=== PATIENT | female | born 1955 | race Caucasian/White ===

== ENCOUNTER → 2016-07-07 | Outpatient (CLI) | payer OTHER ==
--- NOTE | 2016-07-07 11:57 | MA ---
Screening Digital Mammogram Clinical Indications: Routine screening. Technique: Standard cephalocaudal and mediolateral oblique projections are obtained. This examinati on is processed by the [employer] computer aided detection system. Comparison: April 2014, March 2012, February 2010 and December 2007 Breast density: B; There are scattered fibroglandular densities. Findings: CAD was reviewed. No suspicious findings are identified. Impression: Negative mammogram. . BI-RADS 1. Recommendation: Routine screening is recommended in one year. [facility] will send a result letter to the patient. Negative mammography should not preclude additional workup of a clinically suspicious finding. The patient's information is entered into a reminder system with a target due date for her next mammo gram.
== END ==
LOC: CIMAGING 10:52
DX: Z12.31 Encounter for screening mammogram for malignant neoplasm of breast (principal)
CPT/HCPCS: G0202

== ENCOUNTER → 2016-10-19 | Outpatient (CLI) | payer OTHER ==
[~2016-10-19] MED LIST: IOPAMIDOL (ISOVUE-300) 100 ML BTL ONE
== END ==
LOC: FIMAGING 13:30
PROVIDERS: ATTEND Internal Medicine
DX: R93.421 Abnormal radiologic findings on diagnostic imaging of right kidney (principal); R93.422 Abnormal radiologic findings on diagnostic imaging of left kidney
CPT/HCPCS: Q9967

== ENCOUNTER → 2016-10-20 | Outpatient (CLI) | payer OTHER ==
[~2016-10-20] MED LIST changes: +GADOBUTROL 10 ML VIAL IVP ONE; -IOPAMIDOL (ISOVUE-300) 100 ML BTL ONE; +NA BICARBONATE 50 MEQ/50 ML VIAL ONE
== END ==
LOC: FIMAGING 17:44
PROVIDERS: ATTEND Internal Medicine
DX: N28.89 Other specified disorders of kidney and ureter (principal)
CPT/HCPCS: A9585

== ENCOUNTER 2016-11-04 12:30 | Inpatient (IN) | payer OTHER ==
[2016-11-11] MEDS ORDERED: BUPIVACAINE/EPI 0.25% 30 ML SDV ONE (12:33)
[2016-11-11] MEDS ORDERED: LR 1,000 ML IV ONE (12:43)
[2016-11-11] MEDS ORDERED: LIDOCAINE 1% 2 ML INJ ID PRN (12:43)
[2016-11-11] MEDS ORDERED: ceFAZolin 2 GM/DEXTROSE 100 ML IV ONE (13:06)
--- NOTE | 2016-11-11 13:06 | PDHPUP ---
History & Physical Update H&P update statement: This history and physical update is based on an assessment of the patient which was completed after admission or registration (within 24 hours), but prior to the surgery/procedure. H&P update: H&P reviewed & patient examined, no change in patient's condition since H&P completed
[2016-11-11] MEDS ORDERED: ROCURONIUM 100 MG/10 ML VIAL ONE (13:23)
[2016-11-11] MEDS ORDERED: LIDOCAINE 2% 100 MG/5 ML SYR ONE (13:23)
[2016-11-11] MEDS ORDERED: PROPOFOL 200 MG/20 ML VIAL ONE (13:23)
[2016-11-11] MEDS ORDERED: METOCLOPRAMIDE 10 MG/2 ML VIAL ONE (13:23)
[2016-11-11] MEDS ORDERED: DEXAMETHASONE 4 MG/ML VIAL ONE ×2 (13:23)
[2016-11-11] MEDS ORDERED: MIDAZOLAM 2 MG/2 ML VIAL ONE (13:24)
[2016-11-11] MEDS ORDERED: LR 1,000 ML IV SCH (13:30)
--- NOTE | 2016-11-11 14:19 | PDANEPAE ---
ANE Past Medical History - Cardiovascular History Hx Hypertension: Yes Hx Arrhythmias: No Hx Chest Pain: No Hx Coronary Artery / Peripheral Vascular Disease: No Hx CHF / Valvular Disease: No Hx Palpitations: No - Pulmonary History Hx COPD: No Hx Asthma/Reactive Airway Disease: No Hx Recent Upper Respiratory Infection: No Hx Oxygen in Use at Home: No - Neurologic History Hx Cerebrovascular Accident: No Hx Seizures: No Hx Dementia: No - Endocrine History Hx Diabetes: No - Renal History Hx Renal Disorders: Yes - Liver History Hx Hepatic Disorders: No - Neurological & Psychiatric Hx Hx Neurological and Psychiatric Disorders: No - Cancer History Hx Cancer: No - Congenital Disorder History Hx Congenital Disorders: No - GI History Hx Gastrointestinal Disorders: No - Chronic Pain History Chronic Pain: Yes (ARTHRITIS TO KNEES) ANE Review of Systems - Exercise capacity METS (RN): 4 METS - Systems Constitutional: Reports: other (morbid obesity) ANE Patient History - Allergies Allergies/Adverse Reactions: amlodipine [From Norvasc] Allergy (Verified 11/04/16 11:17) Swelling/neck,face,throat atorvastatin Allergy (Verified 11/04/16 11:18) Hives azithromycin Allergy (Verified 11/04/16 11:17) Hives carbamazepine Allergy (Verified 11/04/16 11:17) Hives enalapril Allergy (Verified 11/04/16 11:17) rash/swelling enalaprilat Allergy (Verified 11/04/16 11:17) rash/swelling olmesartan Allergy (Verified 11/04/16 11:17) Swelling/neck,face,throat simvastatin [From Zocor] Allergy (Verified 11/04/16 11:17) "makes her pass out" Sulfa (Sulfonamide Antibiotics) Allergy (Verified 11/04/16 11:18) Hives vasopressin Allergy (Verified 11/04/16 11:17) Anaphylaxis Shock - Home Medications Home Medications: Losartan Potassium [Cozaar] 100 mg PO DAILY 10/27/16 [Last Taken 11/11/16 07:00] Magnesium Glycinate [MAG GLYCINATE] 400 mg PO DAILY 10/27/16 [Last Taken ] Multivitamins [Multivitamin (*)] 1 each PO DAILY 10/27/16 [Last Taken 11/04/16] Nebivolol HCl [Bystolic] 10 mg PO DAILY 10/27/16 [Last Taken 11/11/16 07:00] - NPO status NPO Since - Liquids (Date): 11/11/16 NPO Since - Liquids (Time): 07:30 NPO Since - Solids (Date): 11/11/16 NPO Since - Solids (Time): 20:30 - Anes Hx Anes Hx: no prior problems - Smoking Hx Smoking Status: Never smoked - Family Anes Hx Family Hx Anesthesia Complications: NONE ANE Labs/Vital Signs - Vital Signs Blood Pressure: 160/80 Heart Rate: 61 Respiratory Rate: 14 O2 Sat (%): 95 Height: 167.64 cm Weight: 86.183 kg ANE Physical Exam - Airway Mallampati Score: Class 2 Mouth exam: normal dental/mouth exam - Pulmonary Pulmonary: no respiratory distress - Cardiovascular Cardiovascular: regular rate and rhythym - ASA Status ASA Status: III
[2016-11-11] MEDS ORDERED: SUGAMMADEX SODIUM 200 MG/2 ML VIAL IVP ONE (16:51)
[2016-11-11] MEDS ORDERED: morphINE *ANESTHESIA ONLY* 10 MG/ML VIAL ONE (16:57)
[2016-11-11] MEDS ORDERED: NALOXONE HCL 0.4 MG/ML INJ IVP PRN (17:20)
[2016-11-11] MEDS ORDERED: MEPERIDINE 25 MG/ML SYR IVP PRN (17:20)
[2016-11-11] MEDS ORDERED: LR 500 ML IV PRN (17:20)
[2016-11-11] MEDS ORDERED: ONDANSETRON 4 MG/2 ML VIAL IVP PRN (17:20)
[2016-11-11] MEDS ORDERED: ALBUTEROL 3 ML DEYVIAL IH PRN (17:20)
--- NOTE | 2016-11-11 17:21 | POSTANESTH ---
Post Anesthetic Evaluation Respiratory Status: Normal, Stable Level of Consciousness/Mental Status: Can Participate in Eval Pain Control: Adequate, Prn Tx Ordered Nausea/Vomiting Control: Adequate, Prn Tx Ordered Complications Possibly Related to Anesthesia: None Noted
[2016-11-11] MEDS ORDERED: fentaNYL 100 MCG/2 ML INJ ONE (17:22)
[2016-11-11] MEDS: fentaNYL 100 MCG/2 ML INJ IVP PRN ×2 (17:24→17:29)
[2016-11-11] MEDS ORDERED: ACETAMINOPHEN 325 MG TAB PO PRN (17:25)
[2016-11-11] MEDS ORDERED: IBUPROFEN 200 MG TAB PO PRN (17:25)
[2016-11-11] MEDS ORDERED: ONDANSETRON DISINTEGRATING 4 MG TAB PO PRN (17:25)
[2016-11-11] MEDS ORDERED: ZOLPIDEM TARTRATE 5 MG TAB PO PRN (17:25)
[2016-11-11] MEDS ORDERED: ONDANSETRON 4 MG/2 ML VIAL ONE (17:30)
[2016-11-11] MEDS ORDERED: HYDROmorphONE/DILAUDID 1 MG/ML SYR ONE ×2 (17:33→17:58)
[2016-11-11] MEDS: HYDROmorphONE/DILAUDID 1 MG/ML SYR IVP PRN ×4 (17:35→18:35)
--- NOTE | 2016-11-11 17:42 | POSTOPPROG ---
Post Op Note Date of Operation: 11/11/16 Surgeon: Alverto Hartley Anesthesia: GET(General Endotracheal) Pre-op Diagnosis: Right renal mass Post-op Diagnosis: Right renal mass Procedure: Laparoscopic right radical nephrectomy Findings: 5 cm upper pole right renal mass Inf/Abcess present in the surg proc area at time of surgery?: No EBL: 50-100 Total fluids administered: 2200 LR Complications: none
--- NOTE | 2016-11-11 18:37 | GOP ---
[f rep st] OPERATIVE REPORT DATE OF OPERATION: 11/11/2016 SURGEON: Alverto Hartley MD ANESTHESIOLOGIST: Lucio Javier MD PREOPERATIVE DIAGNOSIS: Right renal mass. POSTOPERATIVE DIAGNOSIS: Right renal mass. PROCEDURE PERFORMED: Laparoscopic right radical nephrectomy. FINDINGS: SPECIMENS: Right radical nephrectomy. ESTIMATED BLOOD LOSS: 50 mL. INDICATIONS: Patient is a 60-year-old female who was found to have a 5 cm right upper pole renal ma ss, worrisome for malignancy. After discussing options, she elected to come in for a radical nephre ctomy. DESCRIPTION OF PROCEDURE: After informed consent, with general endotracheal anesthesia, Ramires jody ter was placed. Patient was positioned on a velázquez bag in the left lateral decubitus position. A manas ulder roll was positioned. All pressure points were carefully padded. She was secured to the table with tape. Abdomen and flank were sterilely prepped and draped. A 3-port laparoscopic approach wa s employed. 5 mm Optiview was placed 10 cm caudal to the xiphoid process along the costal margin. The abdomen was then insufflated to 15 mmHg. An additional 5 and 12 mm port were placed cranial and caudad to the original port, parallel to the costal margin. Examination did not reveal any gross abnormalities. Harmonic Scalpel was used to incise the white l ine of [place] and reflected the colon and duodenum medially. The ureter was identified and was used to elevate the kidney. The hilum comprising 2 arteries and 2 veins were then identified. The lower pole vessels were divided en bloc using Endo-EDWAR. Further dissection of the main artery and vein w ere then carried out. These vessels were then ligated en bloc with an Endo-EDWAR stapler. The medial superior aspect of the kidney was then dissected, taking care to preserve the adrenal gland. The k idney was then completely mobilized within Gerota's fascia from the body wall. The ureter was then divided with Harmonic Scalpel. The specimen was removed with a retrieval bag through an extension o f the lower port. It was submitted intact for pathologic examination. The extraction incision was closed in layers using 3-0 Vicryl for the peritoneum and 0 PDS for the f ascia. The abdomen was then reinsufflated and examined for hemostasis. Confirming this, the abdome n was desufflated and the remaining ports removed. The extraction incision was completed using subc utaneous Vicryl and subcuticular Monocryl. The 2 remaining port sites were closed using subcuticula r Monocryl. Dermabond was applied to the skin, the patient was awakened and transferred to the [facility] very room in stable condition. There were no intraoperative complications. /[id number]/MODL
[2016-11-11] MEDS: HYDROmorphONE/DILAUDID 6 MG/30 ML PCA IV PRN (19:22)
[2016-11-11] MEDS: D5W 1/2 NS 1,000 ML IV SCH (19:25)
[2016-11-11] MEDS: ONDANSETRON 4 MG/2 ML VIAL IVP PRN (22:37)
[2016-11-12] MEDS: D5W 1/2 NS 1,000 ML IV SCH ×3 (03:18→23:27)
[2016-11-12] MEDS: HYDROmorphONE/DILAUDID 6 MG/30 ML PCA IV PRN (04:52)
[2016-11-12 05:11] LABS: % IMMATURE GRANULYOCYTES 0.3 % (0.0-1.1); ABSOLUTE IMMATURE GRANULOCYTES 0.03 10^3/uL (0.00-0.10); ADD DIFF? NO; ADD MORPH? NO; ADD SCAN? NO; ATYPICAL LYMPHOCYTE FLAG 0 (0-99); FRAGMENT RBC FLAG 0 (0-99); HEMOGLOBIN 12.9 g/dL (12.6-16.3); LEFT SHIFT FLG 20 (0-99); LIPEMIA HEMOLYSIS FLAG 80 (0-99); MEAN CELL HEMOGLOBIN 30.7 pg (27.9-34.1); MEAN CELL HEMOGLOBIN CONCENTR. 32.3 g/dL (32.4-36.7); MEAN CELL VOLUME 95.2 fL (81.5-99.8); MEAN PLATELET VOLUME 10.4 fL (8.7-11.7); PLATELET CLUMPS FLAG 0 (0-99); PLATELET COUNT 246 10^3/uL (150-400); RED CELL DISTRIBUTION WIDTH 12.6 % (11.5-15.2)
[2016-11-12 05:25] LABS: ANION GAP 10 mEq/L (8-16); CALCIUM 9.5 mg/dL (8.5-10.4); CARBON DIOXIDE 21 mEq/l (22-31); CHLORIDE 106 mEq/L (97-110); CREATININE 1.3 mg/dL (0.6-1.0); GLOMERULAR FILTRATION RATE 42; GLUCOSE 127 mg/dL (70-100); POTASSIUM 4.8 mEq/L (3.5-5.2); SODIUM 137 mEq/L (134-144)
[2016-11-12] MEDS: ONDANSETRON 4 MG/2 ML VIAL IVP PRN (07:45)
[2016-11-12] MEDS: oxyCODONE IR 5 MG TAB PO PRN ×3 (08:44→20:51)
[2016-11-12] MEDS: LOSARTAN POTASSIUM 50 MG TAB PO SCH (08:45)
[2016-11-12] MEDS: NEBIVOLOL HCL 5 MG TAB PO SCH (08:45)
[2016-11-12] MEDS ORDERED: PROMETHAZINE HCL 25 MG/ML INJ IVP PRN (08:55)
[2016-11-12] MEDS ORDERED: NON-FORMULARY NEW DRUG (Nebivolol Hcl [Bystolic] 10 MG) PO SCH (09:00)
[2016-11-12] MEDS ORDERED: NON-FORMULARY NEW DRUG (Losartan Potassium [Cozaar] 100 MG) PO SCH (09:00)
--- NOTE | 2016-11-12 09:02 | SOAPPROG ---
SOAP Progress Note Assessment/Plan: Assessment: Right renal mass s/p lap right nephrectomy Plan: 11/12/16 08:58 Will try to transition to po pain meds; will use Phenergan, morphine, Toradol. Subjective: Pt feels fairly good except for nausea that she attributes to Dilaudid. Objective: Vital Signs Temp Pulse Resp BP Pulse Ox 36.4 C 66 14 123/77 H 96 11/12/16 08:27 11/12/16 08:45 11/12/16 08:27 11/12/16 08:45 11/12/16 08:27 Laboratory Results 11/12/16 04:33 11/12/16 04:33 11/11/16 11/12/16 11/13/16 05:59 05:59 05:59 Intake Total 2650 Output Total 650 Balance 2000 Physical Exam - Physical Exam General Appearance: WD/WN, alert, no apparent distress Respiratory: chest non-tender, lungs clear Abdomen: normal bowel sounds, non-tender, soft, other (incisions dry/intact) Skin: normal color Extremities: normal range of motion ICD10 Worksheet Patient Problems: Problems Problem Status Onset Renal mass, right Acute - ICD10 Problem Qualifiers (1) Renal mass, right
[2016-11-12] MEDS: KETOROLAC 15 MG/1 ML SDV IVP SCH ×3 (11:10→23:27)
[2016-11-13] MEDS: oxyCODONE IR 5 MG TAB PO PRN ×3 (03:09→12:25)
[2016-11-13 03:13] VITALS: O2SAT 91
[2016-11-13] MEDS: KETOROLAC 15 MG/1 ML SDV IVP SCH ×2 (05:10→12:23)
[2016-11-13 07:58] VITALS: PULSE 72; RESP 14; TEMP 98
[2016-11-13] MEDS: LOSARTAN POTASSIUM 50 MG TAB PO SCH (08:28)
[2016-11-13] MEDS: NEBIVOLOL HCL 5 MG TAB PO SCH (08:29)
[2016-11-13 08:30] VITALS: BP 153/85
--- NOTE | 2016-11-13 10:56 | SOAPPROG ---
SOAP Progress Note Assessment/Plan: Assessment: Right renal mass s/p lap right nephrectomy Plan: 11/12/16 08:58 Will try to transition to po pain meds; will use Phenergan, morphine, Toradol. 11/13/16 10:55 Pt feels well; no nausea, ambulating well, tolerating oral pain medication. Will discharge home Subjective: Pt feels well; pain controlled with oxycodone. Objective: Vital Signs Temp Pulse Resp BP Pulse Ox 36.7 C 72 14 153/85 H 91 L 11/13/16 07:55 11/13/16 08:29 11/13/16 07:55 11/13/16 08:29 11/13/16 07:55 Laboratory Results 11/12/16 04:33 11/12/16 04:33 11/12/16 11/13/16 11/14/16 05:59 05:59 05:59 Intake Total 2650 2466 Output Total 650 1700 Balance 2000 766 Physical Exam - Physical Exam General Appearance: WD/WN, alert, no apparent distress Abdomen: normal bowel sounds, non-tender, soft (incision clean and dry.) ICD10 Worksheet Patient Problems: Problems Problem Status Onset Renal mass, right Acute - ICD10 Problem Qualifiers (1) Renal mass, right
[2016-11-14] MEDS ORDERED: MULTIVITAMINS 1 EACH TAB PO SCH (09:00)
[2016-11-14] MEDS ORDERED: MAGNESIUM GLYCINATE 400 MG PO SCH (09:00)
== END 2016-11-13 12:58 | disposition home or self-care (01) | DRG 658 ==
LOC: F3N 11-11 12:08 → F3E 11-11 18:41
PROVIDERS: ADMIT Urology; ATTEND Urology
PROC: 0TT04ZZ Resection of Right Kidney, Percutaneous Endoscopic Approach (ICD-10-PCS; principal; 2016-11-11 13:30)
DX: C64.1 Malignant neoplasm of right kidney, except renal pelvis (principal); I10 Essential (primary) hypertension; E78.5 Hyperlipidemia, unspecified; E55.9 Vitamin D deficiency, unspecified; M19.90 Unspecified osteoarthritis, unspecified site; E66.01 Morbid (severe) obesity due to excess calories; Z68.30 Body mass index [BMI] 30.0-30.9, adult
CPT/HCPCS: J0690; J1100; J1170; J1200; J1885; J2001; J2250; J2405; J2550; J2704; J2765; J3010

== ENCOUNTER 2017-04-05 08:04 | Inpatient (IN) | payer OTHER ==
--- NOTE | 2017-03-20 15:35 | GHP ---
[f rep st] PREOP HISTORY AND PHYSICAL DATE OF ADMISSION: 04/05/2017 PROBLEM: Right knee arthritis. HISTORY OF PRESENT ILLNESS: The patient is a 61-year-old woman admitted for right total knee arthroplasty. I did arthroscopic surgery on her right knee in 2013. In the past year, she started experiencing increasing soreness on the medial side of the knee. In October 2016, she underwent a right-sided nephrectomy for a renal cancer. She can no longer take Aleve or ibuprofen. In the past 3 or 4 months, she has had increasing pain in her right knee. The knee is painful going down stairs. She has been limping. She has a difficult time lifting and carrying her 2-year-old granddaughter. Because of the progressive pain and limitation of activities and function, she will undergo a right total knee arthroplasty. PAST MEDICAL HISTORY: Nephrectomy for renal carcinoma. She has had a previous parathyroidectomy. She is treated for hypertension. No history of heart disease, stents, DVT, hepatitis, sleep apnea, or bleeding problems. CURRENT MEDICATIONS: Bystolic 10 mg per day, losartan 50 mg per day. DRUG ALLERGIES: Sulfa and azithromycin. Metal allergy: None. Latex allergy: None. SOCIAL HISTORY: The patient is . She is working. She does not smoke cigarettes. She rarely drinks alcohol. FAMILY HISTORY: Positive for hypertension. PHYSICAL EXAMINATION: GENERAL: Height 5 feet 5 inches. Weight 190 pounds. BMI 31.6. EYES: Conjunctivae and sclerae are clear. Pupils are round and reactive. She is wearing contact lenses. MOUTH: Good oral hygiene. No loose teeth. CHEST: Clear. HEART: Regular rhythm. No murmurs. EXTREMITIES: Pertinent findings limited to her right knee. She has full extension and 110 degrees of flexion. She is tender along the medial joint line. She has mild pseudolaxity of her medial collateral ligament. A small effusion is present. IMAGING: Her films show advanced medial compartment degenerative arthritis. She is [id number]. She has mild varus alignment. Minor degenerative changes are present in the lateral compartment and patellofemoral joint. IMPRESSION ON ADMISSION: 1. Right knee degenerative arthritis. She is prepared for a right total knee arthroplasty. 2. Status post nephrectomy for renal carcinoma. 3. Status post parathyroidectomy. 4. Treatment for hypertension. PLAN: She will undergo a right total knee arthroplasty. The surgery has been described to her including the risks, complications, expectations, and recovery time. I have stressed the importance of postoperative physical therapy. I have advised her that a small percentage of patients do not get a satisfactory result with a total knee replacement. She understands that she is relatively young for a total joint arthroplasty. She might require revision surgery in her lifetime. All her questions have been answered, and she consents to surgery. /[id number]/MODL MTDD
[~2017-04-05 08:04] MED LIST changes: -GADOBUTROL 10 ML VIAL IVP ONE; -NA BICARBONATE 50 MEQ/50 ML VIAL ONE; +NS IV ONE; +POVIDONE-IODINE 20 ML in SODIUM CL IRRIG SOLUTION 500 ML IRR ONE; +ROPIVACAINE 0.2% 80 MG, EPINEPHrine 0.2 MG, KETOROLAC TROMETHAMINE 30 MG in BAG 0 ML IU ONE; +TRANEXAMIC ACID IV ONE; +ceFAZolin 1 GM/5 ML SYR ONE
[2017-04-05] MEDS ORDERED: DEXAMETHASONE 4 MG/ML VIAL IVP ONE (08:40)
[2017-04-05] MEDS ORDERED: ceFAZolin 2 GM/SWFI 2 GM/20 ML SYR IVP ONE (08:40)
[2017-04-05] MEDS ORDERED: ACETAMINOPHEN 325 MG TAB PO ONE (08:40)
[2017-04-05] MEDS ORDERED: FAMOTIDINE 20 MG TAB PO ONE (08:40)
[2017-04-05] MEDS ORDERED: LR 1,000 ML IV ONE (08:42)
[2017-04-05] MEDS ORDERED: FAMOTIDINE 20 MG TAB ONE (08:50)
[2017-04-05] MEDS ORDERED: DEXAMETHASONE 4 MG/ML VIAL ONE (08:50)
[2017-04-05] MEDS ORDERED: ACETAMINOPHEN 325 MG TAB ONE (08:50)
[2017-04-05] MEDS ORDERED: ceFAZolin 2 GM/SWFI 20 ML SYR IVP ONE (08:51)
--- NOTE | 2017-04-05 08:53 | PDANEPAE ---
ANE Past Medical History - Cardiovascular History Hx Hypertension: Yes Hx Arrhythmias: No Hx Chest Pain: No Hx Coronary Artery / Peripheral Vascular Disease: No Hx CHF / Valvular Disease: No Hx Palpitations: No Cardiovascular History Comment: PCP MONITORS BP MEDICATIONS - Pulmonary History Hx COPD: No Hx Asthma/Reactive Airway Disease: No Hx Recent Upper Respiratory Infection: No Hx Oxygen in Use at Home: No Hx Sleep Apnea: No Sleep Apnea Screening Result - Last Documented: Negative - Neurologic History Hx Cerebrovascular Accident: No Hx Seizures: No Hx Dementia: No - Endocrine History Hx Diabetes: No Endocrine History Comment: PARATHYROIDS REMOVED D/T BENIGN TUMORS - Renal History Hx Renal Disorders: Yes Renal History Comment: TUMOR IN RIGHT KIDNEY. R radical nephrectomy. - Liver History Hx Hepatic Disorders: No - Neurological & Psychiatric Hx Hx Neurological and Psychiatric Disorders: No - Cancer History Hx Cancer: Yes Cancer History Comment: R KIDNEY MALIGNANT TUMOR. - Congenital Disorder History Hx Congenital Disorders: No - GI History Hx Gastrointestinal Disorders: No - Other Health History Other Health History: WEARS GLASSES/ CONTACTS. ARTHRITIS - Chronic Pain History Chronic Pain: Yes (ARTHRITIS TO KNEES) - Surgical History Prior Surgeries: PARATHYROID REMOVAL X2 10/2011. TONSILLECTOMY. X2. HYSTERECTOMY. LENKA. MENISCUS REPAIR ANE Review of Systems Review of Systems: - Exercise capacity METS (RN): 4 METS ANE Patient History - Allergies Allergies/Adverse Reactions: amlodipine [From Norvasc] Allergy (Verified 11/04/16 11:17) Swelling/neck,face,throat atorvastatin Allergy (Verified 11/04/16 11:18) Hives azithromycin Allergy (Verified 11/04/16 11:17) Hives carbamazepine Allergy (Verified 11/04/16 11:17) Hives enalapril Allergy (Verified 11/04/16 11:17) rash/swelling enalaprilat Allergy (Verified 11/04/16 11:17) rash/swelling olmesartan Allergy (Verified 11/04/16 11:17) Swelling/neck,face,throat simvastatin [From Zocor] Allergy (Verified 11/04/16 11:17) "makes her pass out" Sulfa (Sulfonamide Antibiotics) Allergy (Verified 11/04/16 11:18) Hives vasopressin Allergy (Verified 11/04/16 11:17) Anaphylaxis Shock - Home Medications Home Medications: Losartan Potassium [Cozaar] 100 mg PO DAILY 10/27/16 [Last Taken 11/11/16 07:00] Magnesium Glycinate [MAG GLYCINATE] 400 mg PO DAILY 10/27/16 [Last Taken ] Multivitamins [Multivitamin (*)] 1 each PO DAILY 10/27/16 [Last Taken 11/04/16] Nebivolol HCl [Bystolic] 10 mg PO DAILY 10/27/16 [Last Taken 11/11/16 07:00] - Smoking Hx Smoking Status: Never smoked - Family Anes Hx Family Hx Anesthesia Complications: NONE ANE Labs/Vital Signs - Vital Signs Height: 167.64 cm Weight: 86.183 kg
[2017-04-05] MEDS ORDERED: MIDAZOLAM 2 MG/2 ML VIAL IVP ONE (09:36)
[2017-04-05] MEDS ORDERED: PROPOFOL/EMULSION 500 MG/50 ML BOTTLE IV ONE (09:42)
[2017-04-05] MEDS ORDERED: methylPREDNISolone SOD SUCC 125 MG/2 ML VIAL ONE (09:43)
[2017-04-05] MEDS ORDERED: MIDAZOLAM 2 MG/2 ML VIAL ONE (09:44)
[2017-04-05] MEDS ORDERED: VANCOMYCIN 1 GM VIAL ONE (10:07)
--- NOTE | 2017-04-05 11:49 | POSTOPPROG ---
Post Op Note Date of Operation: 04/05/17 Surgeon: Marcial Carter Liquor Bridge Operator Helper: Braeden Hendricks/Edmar Shine Anesthesiologist: Dr. uHy Feldman Anesthesia: IV Sedation, Spinal Post-op Diagnosis: Right knee severe degenerative arthritis. Procedure: Right total knee arthroplasty Inf/Abcess present in the surg proc area at time of surgery?: No EBL: 50-100 (Adductor canal block in PACU)
[2017-04-05] MEDS ORDERED: ONDANSETRON 4 MG/2 ML VIAL IVP PRN (11:56)
[2017-04-05] MEDS ORDERED: PROMETHAZINE HCL 25 MG SUPPR PR PRN (11:56)
[2017-04-05] MEDS ORDERED: POLYETHYLENE GLYCOL 3350 17 GM PKT PO PRN (11:56)
[2017-04-05] MEDS ORDERED: NS 500 ML IV PRN (11:56)
[2017-04-05] MEDS ORDERED: LACTULOSE 20 GM/30 ML UDCUP PO PRN (11:56)
[2017-04-05] MEDS ORDERED: TEMAZEPAM 15 MG CAP PO PRN (11:56)
[2017-04-05] MEDS ORDERED: MAGNESIUM HYDROXIDE 30 ML UDCUP PO PRN (11:56)
[2017-04-05] MEDS ORDERED: ONDANSETRON DISINTEGRATING 4 MG TAB PO PRN (11:56)
[2017-04-05] MEDS ORDERED: CYCLOBENZAPRINE 10 MG TAB PO PRN (11:56)
[2017-04-05] MEDS ORDERED: DIPHENOXYLATE/ATROPINE LOMOTIL 1 TAB PO PRN (11:56)
[2017-04-05] MEDS ORDERED: BISACODYL 10 MG SUPP PR PRN (11:56)
[2017-04-05] MEDS ORDERED: METOCLOPRAMIDE 10 MG/2 ML VIAL IVP PRN (11:56)
[2017-04-05] MEDS ORDERED: diphenhydrAMINE 25 MG CAP PO PRN (11:56)
[2017-04-05] MEDS ORDERED: PROMETHAZINE HCL 25 MG/ML INJ IVP PRN (11:56)
[2017-04-05] MEDS ORDERED: LR 1,000 ML IV SCH (12:00)
--- NOTE | 2017-04-05 12:48 | GOP ---
[f rep st] OPERATIVE REPORT DATE OF OPERATION: 04/05/2017 SURGEON: Marcial Carter MD BERRY PICKER: Braeden Hendricks CFA, and Edmar Shine PA-C. ANESTHESIA: A combination of Marcaine spinal, IV sedation, and adductor canal block. ANESTHESIOLOGIST: Dr. Huy Feldman. PREOPERATIVE DIAGNOSIS: Right knee degenerative arthritis. POSTOPERATIVE DIAGNOSIS: Right knee degenerative arthritis. PROCEDURE PERFORMED: A right total knee arthroplasty, cemented, Cedillo and Nephew Journey II, posteri or stabilized. FINDINGS: DESCRIPTION OF PROCEDURE: The patient was given 2 g of IV Ancef preoperatively within 60 minutes of surgery. She also received IV tranexamic acid at a dose of 10 mg/kg. She was placed on the operatin g room table and given spinal anesthesia with Marcaine by Dr. Feldman. She was placed supine and give n IV sedation. A Ramires catheter was not used. She wore a GREG stocking and SCD on the nonoperative l eg. Her right lower extremity was prepped with ChloraPrep from the upper thigh tourniquet to the tip s of the toes. It was draped free using sterile sheets, stockinette, and Ioban plastic adhesive drap es. The lower leg was wrapped with compressive Coban. The leg was exsanguinated with elevation and a 6-inch compressive wrap, and the tourniquet was inflated to 350 mmHg. The [employer] time-out was performed to verify the correct patient identity and the c orrect surgical site and side. The [place] time-out was also performed. The OnTheGo Platformsayo leg-holding device was sterilely attached to the operating room table and used throughout the procedure to help position the knee. A straight midline incision was made centered on the patell a. Subcutaneous tissues were sharply divided, and hemostasis was obtained using electrocautery. A medial subcutaneous flap was developed, and the capsule and synovium were opened in a medial parapa tellar fashion. Extensive degenerative changes were present in all 3 compartments. The lateral comp artment was the least involved. The medial capsule and periosteum were elevated off the rim of the m edial tibial plateau all the way around to the posteromedial corner. Her medial collateral ligament was lightly released. In order to improve exposure, her patella was prepared first. The original th ickness of the patella was measured. Peripheral osteophytes were removed. I cut a flat surface on t he back of the patella. It was sized for a 35 mm resurfacing component. I removed enough bone from the patella such that the remaining bone plus the thickness of the patellar component recreated the o riginal thickness of the patella. The composite thickness was 21 mm. The intramedullary alignment guide system was used to set up the distal femoral cut. The femur was c ut in 5 degrees of valgus. She had about 5 degrees of hyperextension preoperatively. I did not make a +2 mm cut on the distal femur. The sizing jig was used to determine proper femoral sizing. I aiyana fted the jig anteriorly 1 mm in order to accommodate a size 4 femoral component without notching the anterior cortex. The 5-in-1 cutting block was applied, and the anterior and posterior condylar cuts and chamfer cuts were made. The final jig was used to remove the central portion of the distal femur to accommodate the posterior-stabilized femoral component. I was careful to determine proper rotati on by referencing off [place] line and other bony anatomy. Each cut was checked for accuracy befor e and after it was made. The femur was sized for a size 4 posterior-stabilized component. The trial component was tapped securely into place and was a good fit. Next, the tibia was prepared. The proximal tibial cut was made using the extramedullary alignment gu rosalba system. The cut was made in a few degrees of posterior slope. I was careful to achieve proper v arus/valgus alignment and proper rotation. The posterior compartment was cleared of meniscal remnant s. Osteophytes were removed from the back of her femoral condyles. I checked the flexion and extens ion gaps, and they were equal, balanced, and rectangular. The tibia was sized for a size 3 component. With the trial components in place, I selected an 11 mm polyethylene posterior-stabilized tibial insert. The knee came to about 3-5 degrees of hyperextensio n and flexed to 125 degrees. There was no overstuffing in flexion. Her collateral ligaments were st able and balanced in full extension and 80 degrees of flexion. Her trial patellar button was applied , and tracking was checked. Tracking was excellent without any digital pressure. 40 mL of the joint anesthetic cocktail were injected into the posterior capsule, the periarticular st ructures, the quadriceps muscle and tendon areas, and the subcutaneous tissues along the skin edges. A second dose of tranexamic acid was given at a dose of 10 mg/kg. The surfaces were prepared for cementing. They were carefully cleaned with the pulsating lavage irri gation and thoroughly dried. The CarboJet device was used to blow dry the cancellous surfaces. A do uble batch of methylmethacrylate high-viscosity cement was mixed, along with 2 g of powdered vancomyc in. While it was still in a semi liquid state, all 3 components were cemented in place. Excess ceme nt was removed before it hardened. The 11 mm trial tibial insert was re-tried and was the proper thickness. The actual component was in serted and locked into place. The knee was thoroughly irrigated one final time with a dilute Betadin e solution. The tourniquet was deflated. Total tourniquet time was 52 minutes. Even though she did have 3-5 degrees of hyperextension, her medial and lateral collateral ligaments were stable in 0 deg sammy of flexion. The vastus medialis portion of the extensor mechanism was repaired with several interrupted figure-of -eight #2 FiberWire sutures. The capsule and synovium were closed first with multiple interrupted fi [id number] 0 PDS sutures, followed by a running #2 barbed Ethicon Stratafix PDO suture. The subcu taneous tissues were closed with a running 0 barbed Ethicon Stratafix Monoderm suture. The skin was closed with a running 3-0 barbed Ethicon Stratafix Monoderm subcuticular suture. The skin was sealed with half-inch Steri-Strips. The wound was covered with Xeroform gauze and flat 4 x 4s. The knee w as wrapped with Kerlix and a 6-inch compressive wrap. A long-leg GREG stocking and SCD were applied f ollowed by the cooling device. The patient wore a stocking and SCD on the opposite leg during the pr ocedure. I used a size 4 cemented Cedillo and Nephew Oxinium posterior-stabilized femoral component, size 3 ceme nted tibial base plate, an 11 mm posterior-stabilized tibial insert, and a 35 mm cemented round all-p olyethylene resurfacing patellar component. The estimated blood loss following deflation of the tourniquet was about 100 mL. The sponge and need le counts were correct on 2 occasions. She was awakened from anesthesia, transferred to her gurney, and taken to PACU in satisfactory condit ion. There were no recognized intraoperative complications. In the PACU, for additional postoperative pain control, Dr. Feldman performed an adductor canal block. Braeden Hendricks CFA, and Edmar Shine PA-C, acted as surgical assistants. Their assistance was a m eden[place] necessity. /[id number]/MODL
[2017-04-05] MEDS: ACETAMINOPHEN 325 MG TAB PO SCH ×2 (13:52→18:26)
[2017-04-05] MEDS: HYDROCODONE/APAP 5/325 TAB PO PRN ×3 (14:52→21:42)
[2017-04-05] MEDS: traMADol 50 MG TAB PO PRN (17:06)
[2017-04-05] MEDS: ceFAZolin 2 GM/DEXTROSE 100 ML IV SCH (18:24)
[2017-04-05] MEDS ORDERED: MAGNESIUM GLYCINATE 400 MG PO SCH (21:00)
[2017-04-05] MEDS: ASPIRIN 325 MG TAB PO SCH (21:42)
[2017-04-05] MEDS: FAMOTIDINE 20 MG TAB PO SCH (21:42)
[2017-04-05] MEDS: SENNOSIDES/DOCUSATE SODIUM TAB PO SCH (21:43)
[2017-04-06] MEDS: ACETAMINOPHEN 325 MG TAB PO SCH ×3 (00:09→10:38)
[2017-04-06] MEDS: traMADol 50 MG TAB PO PRN ×2 (00:10→05:28)
[2017-04-06] MEDS: ceFAZolin 2 GM/DEXTROSE 100 ML IV SCH (01:24)
[2017-04-06 05:19] LABS: CREATININE 1.1 mg/dL (0.6-1.0); GLOMERULAR FILTRATION RATE 51
[2017-04-06 05:53] LABS: HEMATOCRIT 55.8 % (38.0-47.0)
--- NOTE | 2017-04-06 07:03 | SOAPPROG ---
SOAP Progress Note Assessment/Plan: Assessment: Afebrile. Awake and alert. She has been up and walking in her room. Mild pain. Her BUN and creatinine are stable. Her dressing is dry. Postop films look excellent. Plan: Physical therapy today for [place] walking and stairs. Discharge later today. 04/06/17 07:02 Objective: Vital Signs Temp Pulse Resp BP Pulse Ox 36.4 C 64 14 142/79 H 98 04/06/17 04:00 04/06/17 04:00 04/06/17 04:00 04/06/17 04:00 04/06/17 04:00 Laboratory Results 04/06/17 04:18 04/06/17 04:18 04/05/17 04/06/17 04/07/17 05:59 05:59 05:59 Intake Total 2732 Output Total 1430 Balance 1302 ICD10 Worksheet Patient Problems: Problems Problem Status Onset Osteoarthritis of right knee Acute Renal mass, right Acute
[2017-04-06 07:40] VITALS: BP 158/95; RESP 16; TEMP 97.6; O2SAT 97
--- NOTE | 2017-04-06 07:49 | GDS ---
[f rep st] DISCHARGE SUMMARY ADMISSION DIAGNOSIS: Right knee degenerative arthritis. DISCHARGE DIAGNOSIS: Right knee degenerative arthritis. OPERATION PERFORMED: April 05, 2017, right total knee arthroplasty. POSTOPERATIVE COMPLICATIONS: None. CONDITION ON DISCHARGE: Improved. DESCRIPTION OF HOSPITAL COURSE: The patient was admitted in the hospital the morning of surgery. He r admission CBC and electrolytes were normal. BUN 24, creatinine 1.4. The same day, under a combina tion of Marcaine, spinal, IV sedation, and adductor canal block, she underwent a right total knee art hroplasty. She required catheterization 1 time in the PACU, but was able to void spontaneously after that. She was treated with multimodal DVT prophylaxis, including early mobilization and aspirin. O n the first postoperative day, her BUN and creatinine were 20 and 1.1. She was seen by [facility] and made good progress with ambulation and stairs. By the time of discharge, she was afebrile an d was independent walking with a walker. DISPOSITION: The patient discharged to her home. She will go [facility]. She may progress to full weightbearing on the right as tolerated. Use GREG stockings for 1 week. Continue aspirin 325 mg p.o. daily for 21 days. She has prescriptions for tr amadol and [place] for pain control. If there are any problems, she is to call me at the office. I wi ll see her back in the office on April 17, 2017. /[id number]/MODL
[2017-04-06] MEDS: SENNOSIDES/DOCUSATE SODIUM TAB PO SCH (08:01)
[2017-04-06] MEDS: ASPIRIN 325 MG TAB PO SCH (08:01)
[2017-04-06] MEDS: FAMOTIDINE 20 MG TAB PO SCH (08:02)
[2017-04-06 08:07] VITALS: PULSE 66
[2017-04-06] MEDS ORDERED: NON-FORMULARY NEW DRUG (Losartan Potassium [Cozaar] 100 MG) PO SCH (09:00)
[2017-04-06] MEDS ORDERED: NEBIVOLOL HCL 5 MG TAB PO SCH (09:00)
[2017-04-06] MEDS ORDERED: FERROUS SULFATE 140 MG TAB.ER PO SCH (09:00)
[2017-04-06] MEDS ORDERED: NON-FORMULARY NEW DRUG (Nebivolol Hcl [Bystolic] 10 MG) PO SCH (09:00)
[2017-04-06] MEDS ORDERED: LOSARTAN POTASSIUM 50 MG TAB PO SCH (09:00)
--- NOTE | 2017-04-06 10:16 | ASMTCMCOM ---
CM Note CM Note Notes: Patient is POD #1 R TKA. I spoke with her and her about home care - they decline, as they have outpatient PT set up for Tuesday 04/10 and can provide care at home until then. Date Signed: 04/06/2017 10:15 AM Electronically Signed By:Malathi Macias RN
[2017-04-06] MEDS: HYDROCODONE/APAP 5/325 TAB PO PRN (10:33)
--- NOTE | 2017-04-06 14:19 | ASDISCHSUM ---
Discharge Information Plan Status:Home with No Needs Medically Cleared to Leave: Discharge Date:04/06/2017 12:03 PM CM D/C Disposition:Home, Routine, Self-Care ADT D/C Disposition:Home, Routine, Self-Care Projected Discharge Date:04/06/2017 12:03 PM Transportation at D/C:Family Discharge Delay Reason: Follow-Up Date:04/06/2017 12:03 PM Discharge Slot: Final Diagnosis: Placement Information Patient Contact Information Contact Name:ROSA Relationship: Address:[address] [place]:[facility] Phone: [facility]/Zip Code:[place] [address] Email: Financial Information Financial Class:HMO and PPO Plans Primary Plan Desc:HMO [employer] Primary Plan Number:[id number] Secondary Plan Desc: Secondary Plan Number: Assessment Information [facility] CM Progress Note CM Note CM Note Notes: Patient is POD #1 R TKA. I spoke with her and her about home care - they decline, as they have outpatient PT set up for Tuesday 04/10 and can provide care at home until then. Date Signed: 04/06/2017 10:15 AM Electronically Signed By:Maltahi Macias RN Intervention Information
== END 2017-04-06 12:03 | disposition home or self-care (01) | DRG 470 ==
LOC: F3N 08:04
PROVIDERS: ADMIT Orthopaedic Surgery; ATTEND Orthopaedic Surgery
PROC: 0SRC0J9 Replacement of Right Knee Joint with Synthetic Substitute, Cemented, Open Approach (ICD-10-PCS; principal; 2017-04-05 09:30)
DX: M17.11 Unilateral primary osteoarthritis, right knee (principal); I10 Essential (primary) hypertension; Z85.53 Personal history of malignant neoplasm of renal pelvis; Z90.5 Acquired absence of kidney
CPT/HCPCS: 97116-GP; 97161-GP; 97165-GO; C1713; J0171; J0690; J1100; J1200; J1885; J2250; J2704; J2795; J2930; J3370

== ENCOUNTER 2017-04-08 00:04 | Emergency (ER) | payer OTHER ==
[2017-04-08 00:13] VITALS: TEMP 99
[2017-04-08] MEDS ORDERED: HYDROmorphONE/DILAUDID 1 MG/ML INJ IVP ONE (00:50)
--- NOTE | 2017-04-08 00:54 | EDPHY ---
H & P Stated Complaint: R TKR Time Seen by Provider: 04/08/17 00:35 HPI/ROS: Chief Complaint: Postop pain HPI: 61-year-old woman who had a total right knee replacement done on 04/05. The evening after the surgery, after the nerve block wore off, she began experiencing severe pain that was uncontrolled with the hydrocodone and the tramadol she was given. She is unable to take NSAIDs status post a nephrectomy in the past. She denies any fevers or chills. No chest pain or shortness of breath. Pain has been persistent but is not been worsening. ROS: 10 point Review of Systems is negative except as noted in the HPI. PMH: renal tumor status post nephrectomy Social History: No smoking, no alcohol, no recreational drug use Family History: non-contributory Physical Exam: Gen: Awake, Alert, No Distress HEENT: Nose: no rhinorrhea Eyes: PERRLA, EOMI Mouth: Moist mucosa Neck: Supple, no JVD Chest: nontender, lungs clear to auscultation Heart: S1, S2 normal, no murmur Abd: Soft, non-tender, no guarding Back: no CVA tenderness, no midline tenderness Ext: Right knee has a intact anterior incision. It is moderately erythematous , moderately warm to touch. There is no discharge., there is no calf pain or swelling. Skin: no rash Neuro: CN II-XII intact, Sensation grossly intact, Strength 5/5 in bilateral upper and lower extremities - Personal History Current Tetanus/Diphtheria Vaccine: Yes Current Tetanus Diphtheria and Acellular Pertussis (TDAP): Yes - Medical/Surgical History Hx Asthma: No Hx Chronic Respiratory Disease: No Hx Diabetes: No Hx Cardiac Disease: No Hx Renal Disease: No Hx Cirrhosis: No Hx Alcoholism: No Hx HIV/AIDS: No Hx Splenectomy or Spleen Trauma: No Other PMH: hyperlipidemia, HTN, hysterectomy, choly, Left kidney only remaining. Parathyroid surgery, R knee surgery. - Social History Smoking Status: Never smoked Constitutional: Initial Vital Signs Temperature (C) 37.2 C 04/08/17 00:11 Heart Rate 76 04/08/17 00:11 Respiratory Rate 22 H 04/08/17 00:11 Blood Pressure 178/90 H 04/08/17 00:11 O2 Sat (%) 90 L 04/08/17 00:11 O2 Delivery Mode Room Air O2 (L/minute) 4 Allergies/Adverse Reactions: amlodipine [From Norvasc] Allergy (Verified 11/04/16 11:17) Swelling/neck,face,throat atorvastatin Allergy (Verified 11/04/16 11:18) Hives azithromycin Allergy (Verified 11/04/16 11:17) Hives carbamazepine Allergy (Verified 11/04/16 11:17) Hives enalapril Allergy (Verified 11/04/16 11:17) rash/swelling enalaprilat Allergy (Verified 11/04/16 11:17) rash/swelling olmesartan Allergy (Verified 11/04/16 11:17) Swelling/neck,face,throat simvastatin [From Zocor] Allergy (Verified 11/04/16 11:17) "makes her pass out" Sulfa (Sulfonamide Antibiotics) Allergy (Verified 11/04/16 11:18) Hives vasopressin Allergy (Verified 11/04/16 11:17) Anaphylaxis Shock Home Medications: Medication Instructions Recorded Losartan Potassium [Cozaar] 100 mg PO DAILY 10/27/16 Magnesium Glycinate [MAG GLYCINATE] 400 mg PO HS 10/27/16 Multivitamins [Multivitamin (*)] 1 each PO DAILY 10/27/16 Nebivolol HCl [Bystolic] 10 mg PO DAILY 10/27/16 Acetaminophen [Tylenol 325mg (*)] 650 mg PO Q6HRS tab 04/06/17 Aspirin [Aspirin 325 mg (*)] 325 mg PO DAILY tab 04/06/17 Ferrous Sulfate [Slow Fe 140 MG 140 mg PO DAILY tab.er 04/06/17 (*)] Hydrocodone/APAP 5/325 [[place]tis 1 - 2 tab PO Q4HRS PRN #30 tab 04/06/17 5/325 (*)] Ondansetron Odt [Zofran Odt 4 mg 4 mg PO Q4HRS PRN #15 tab 04/06/17 (*)] Sennosides/Docusate Sodium 1 - 2 tab PO BID tab 04/06/17 [Senokot-S] traMADol [Ultram 50 mg (*)] 50 mg PO Q6HRS PRN #30 tab 04/06/17 Hydromorphone HCl 2 mg PO Q6 PRN #10 tablet 11/11/17 Medical Decision Making ED Course/Re-evaluation: 61-year-old who is been having pain to her surgical site since only a few hours after her surgery when her nerve block wore off. Pain is not been escalating. She is afebrile. She has some mild erythema which is consistent with postoperative changes. She has some mild elevation white blood cell count but there is no left shift suggestive of an infection but this is rather likely inflammatory changes from the surgery. Pain is significantly improved after 0.5 mg of Dilaudid IV. Will send her home with oral Dilaudid. She will call and follow up with Orthopedics tomorrow, return for worsening. - Data Points Laboratory Results: Laboratory Results 04/08/17 01:13 04/08/17 01:13 04/08/17 04/08/17 01: 01:13 WBC 11.59 10^3/uL H 10^3/uL (3.80-9.50) RBC 3.75 10^6/uL L 10^6/uL (4.18-5.33) Hgb 11.6 g/dL L g/dL (12.6-16.3) Hct 35.1 % L D % (38.0-47.0) MCV 93.6 fL fL (81.5-99.8) MCH 30.9 pg pg (27.9-34.1) MCHC 33.0 g/dL g/dL (32.4-36.7) RDW 12.8 % % (11.5-15.2) Plt Count 244 10^3/uL 10^3/uL (150-400) MPV 9.9 fL fL (8.7-11.7) Neut % (Auto) 71.9 % % (39.3-74.2) Lymph % (Auto) 15.1 % % (15.0-45.0) [place] % (Auto) 9.5 % % (4.5-13.0) Eos % (Auto) 2.5 % % (0.6-7.6) Baso % (Auto) 0.6 % % (0.3-1.7) Nucleat RBC Rel Count 0.0 % % (0.0-0.2) Absolute Neuts (auto) 8.33 10^3/uL H 10^3/uL (1.70-6.50) Absolute Lymphs (auto) 1.75 10^3/uL 10^3/uL (1.00-3.00) Absolute Monos (auto) 1.10 10^3/uL H 10^3/uL (0.30-0.80) Absolute Eos (auto) 0.29 10^3/uL 10^3/uL (0.03-0.40) Absolute Basos (auto) 0.07 10^3/uL 10^3/uL (0.02-0.10) Absolute Nucleated RBC 0.00 10^3/uL 10^3/uL (0-0.01) Immature Gran % 0.4 % % (0.0-1.1) Immature Gran # 0.05 10^3/uL 10^3/uL (0.00-0.10) Sodium 140 mEq/L mEq/L (134-144) Potassium 4.6 mEq/L mEq/L (3.5-5.2) Chloride 107 mEq/L mEq/L (97-110) Carbon Dioxide 21 mEq/l L mEq/l (22-31) Anion Gap 12 mEq/L mEq/L (8-16) BUN 25 mg/dL H mg/dL (7-23) Creatinine 1.4 mg/dL H mg/dL (0.6-1.0) Estimated GFR 38 Glucose 96 mg/dL mg/dL (70-100) Calcium 9.8 mg/dL mg/dL (8.5-10.4) Medications Given: Discontinued Medications Hydromorphone HCl (Dilaudid) 0.5 mg IVP EDNOW ONE Stop: 04/08/17 00:51 Last Admin: 04/08/17 01:19 Dose: 0.5 mg Departure - Departure Disposition: Home, Routine, Self-Care Clinical Impression: Post-op pain Condition: Good Instructions: Hydromorphone (By mouth), Knee Pain (ED) Additional Instructions: Return to the emergency department for increasing swelling, increasing redness, fevers, chills, uncontrolled pain, or any other concerns. Follow up with your orthopedist tomorrow. Referrals: Aditi Cuellar MD [Primary Care Provider] - As per Instructions Marcial Carter MD [Medical Doctor] - As per Instructions Prescriptions: Hydromorphone HCl 2 mg PO Q6 PRN #10 tablet PRN Reason: Pain, Severe
[2017-04-08 01:24] LABS: % IMMATURE GRANULYOCYTES 0.4 % (0.0-1.1); ABSOLUTE IMMATURE GRANULOCYTES 0.05 10^3/uL (0.00-0.10); ADD DIFF? NO; ADD MORPH? NO; ADD SCAN? NO; ATYPICAL LYMPHOCYTE FLAG 0 (0-99); FRAGMENT RBC FLAG 0 (0-99); HEMATOCRIT 35.1 % (38.0-47.0); HEMOGLOBIN 11.6 g/dL (12.6-16.3); LEFT SHIFT FLG 0 (0-99); LIPEMIA HEMOLYSIS FLAG 80 (0-99); MEAN CELL HEMOGLOBIN 30.9 pg (27.9-34.1); MEAN CELL VOLUME 93.6 fL (81.5-99.8); MEAN PLATELET VOLUME 9.9 fL (8.7-11.7); PLATELET CLUMPS FLAG 0 (0-99); PLATELET COUNT 244 10^3/uL (150-400); RED BLOOD CELL COUNT 3.75 10^6/uL (4.18-5.33); RED CELL DISTRIBUTION WIDTH 12.8 % (11.5-15.2)
[2017-04-08 01:33] LABS: ANION GAP 12 mEq/L (8-16); CALCIUM 9.8 mg/dL (8.5-10.4); CARBON DIOXIDE 21 mEq/l (22-31); CHLORIDE 107 mEq/L (97-110); CREATININE 1.4 mg/dL (0.6-1.0); GLOMERULAR FILTRATION RATE 38; GLUCOSE 96 mg/dL (70-100); POTASSIUM 4.6 mEq/L (3.5-5.2); SODIUM 140 mEq/L (134-144)
[2017-04-08] MEDS ORDERED: HYDROmorphONE/DILAUDID 2 MG TAB PO ONE (02:04)
[2017-04-08 02:32] VITALS: BP 110/80; PULSE 59; RESP 22; O2SAT 95
== END 2017-04-08 02:36 | disposition home or self-care (01) ==
DX: G89.18 Other acute postprocedural pain (principal); M25.561 Pain in right knee; I10 Essential (primary) hypertension; Z79.82 Long term (current) use of aspirin
CPT/HCPCS: 96374; J1170

== ENCOUNTER → 2017-05-10 | Outpatient (CLI) | payer OTHER ==
[~2017-05-10] MED LIST changes: +IOPAMIDOL (ISOVUE-300) 100 ML BTL ONE; -NS IV ONE; -POVIDONE-IODINE 20 ML in SODIUM CL IRRIG SOLUTION 500 ML IRR ONE; -ROPIVACAINE 0.2% 80 MG, EPINEPHrine 0.2 MG, KETOROLAC TROMETHAMINE 30 MG in BAG 0 ML IU ONE; -TRANEXAMIC ACID IV ONE; -ceFAZolin 1 GM/5 ML SYR ONE
[2017-05-10 12:24] LABS: CREATININE 1.1 mg/dL (0.6-1.0)
== END ==
LOC: CIMAGING 11:10
PROVIDERS: ATTEND Urology
DX: C64.9 Malignant neoplasm of unspecified kidney, except renal pelvis (principal)
CPT/HCPCS: 71020-PO; 82565-PO; Q9967

== ENCOUNTER → 2018-07-03 | Outpatient (CLI) | payer OTHER ==
[~2018-07-03] MED LIST changes: +IOPAMIDOL (ISOVUE 370) 100 ML BTL IV ONE; -IOPAMIDOL (ISOVUE-300) 100 ML BTL ONE
== END ==
LOC: CIMAGING 09:18
PROVIDERS: ATTEND Urology
DX: Z08 Encounter for follow-up examination after completed treatment for malignant neoplasm (principal); N28.1 Cyst of kidney, acquired; Z90.5 Acquired absence of kidney
CPT/HCPCS: 74177-PO; 82565-PO; Q9967

== ENCOUNTER → 2018-07-05 | Outpatient (CLI) | payer OTHER | LOC: CIMAGING 12:27 | PROVIDERS: ATTEND Urology | DX: N28.1 Cyst of kidney, acquired (principal); R33.9 Retention of urine, unspecified | CPT/HCPCS: 76770-PO ==

== ENCOUNTER → 2018-08-21 | Outpatient (CLI) | payer OTHER | LOC: BMCIMAGING 10:16 | PROVIDERS: ATTEND Urology | DX: N28.89 Other specified disorders of kidney and ureter (principal) ==